=== PATIENT | female | born 1950 | race American Indian/Alaskan Native ===

== ENCOUNTER 2022-03-30 12:30 | Emergency (ER) | payer MEDICARE ==
[2022-03-30 13:25] VITALS: BP 135/72
[2022-03-30] MEDS ORDERED: HYDROcodone/ACETAMINOPHEN 5-325 MG TAB PO ONE (13:41)
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
[2022-03-30] MEDS ORDERED: ACETAMINOPHEN 325 MG TAB PO ONE (15:03)
== END 2022-03-30 15:33 | disposition home or self-care (01) ==
LOC: ED 12:30
DX: S80.11XA Contusion of right lower leg, initial encounter (principal); M54.9 Dorsalgia, unspecified; I10 Essential (primary) hypertension; E11.9 Type 2 diabetes mellitus without complications; J45.909 Unspecified asthma, uncomplicated; Z79.899 Other long term (current) drug therapy; V87.7XXA Person injured in collision between other specified motor vehicles (traffic), initial encounter; Y93.89 Activity, other specified; Y92.488 Other paved roadways as the place of occurrence of the external cause; Y99.8 Other external cause status
CPT/HCPCS: 71045; 72100; 99283